=== PATIENT | male | born 1980 | race Caucasian/White ===

== ENCOUNTER → 2019-11-06 | Outpatient (CLI) | payer BC ==
--- NOTE | 2019-11-06 09:56 | RADIOLOGY REPORT (SQ) ---
EXAM DESCRIPTION: U/S ABDOMEN COMPLETE W/O DOP IMAGES COMPLETED DATE/TIME: 11/06/2019 9:34 am REASON FOR STUDY: R10.84 GENERALIZED ABDOMINAL PAIN R10.84 GENERALIZED ABDOMINAL PAIN N50.811 RIGH T TESTICULAR PAIN COMPARISON: None. TECHNIQUE: Dynamic and static grayscale images acquired of the abdomen and recorded on PACS. Additio nal selected color Doppler and spectral images recorded. Note: Study does not meet criteria for complete doppler/duplex scan LIMITATIONS: None. FINDINGS: PANCREAS: The visualized portions of the pancreas appear normal. LIVER: Normal contour and echotexture of the liver. LIVER VASCULATURE: Normal hepatopetal directional flow in the portal veins. The hepatic veins are pa tent. GALLBLADDER: The gallbladder wall measures 1.6 mm in thickness. There is no cholelithiasis, sludge o r pericholecystic fluid. ULTRASOUND-DETECTED AMAYA'S SIGN: Negative. INTRAHEPATIC DUCTS AND COMMON DUCT: The common bile duct measures 3.4 mm in diameter. There is no di latation of the intrahepatic ducts. INFERIOR VENA CAVA: Patent. AORTA: No aneurysm. RIGHT KIDNEY: The right kidney measures 10.5 cm in length. There is no hydronephrosis. LEFT KIDNEY: The left kidney measures 9.2 cm in length. There is no hydronephrosis. SPLEEN: The spleen measures 10 cm in length. PERITONEAL AND PLEURAL SPACES: No ascites or effusions. OTHER: No other finding. IMPRESSION: NORMAL ABDOMINAL ULTRASOUND. TECHNICAL DOCUMENTATION: JOB ID: [id number] 2010 [employer]- All Rights Reserved Reading location - IP/workstation name: [email or web address]
--- NOTE | 2019-11-06 10:44 | RADIOLOGY REPORT (SQ) ---
EXAM DESCRIPTION: U/S SCROTUM W/DOPPLER IMAGES COMPLETED DATE/TIME: 11/06/2019 10:31 am REASON FOR STUDY: N50.811 RIGHT TESTICULAR PAIN R10.84 GENERALIZED ABDOMINAL PAIN N50.811 RIGHT TE STICULAR PAIN COMPARISON: None. TECHNIQUE: Static and realtime arteaga scale imaging of the scrotum and testes. Selected color Doppler and spectral images recorded to document blood flow. LIMITATIONS: None. FINDINGS: RIGHT: TESTICLE: The testicle measures 3.2 x 2.6 x 1.8 cm. The echotexture of the testicular parenchyma is homogeneous and on Doppler there is intact arterial inflow and venous outflow within it. There is no testicular mass. EPIDIDYMIS: The epididymis measures 8 x 5 x 4.6 mm and on Doppler there is no evidence of hyperemia w ithin it. HYDROCELE OR VARICOCELE: Varicocele. HERNIA OR EXTRA-TESTICULAR MASS: No. OTHER: No other finding. LEFT: TESTICLE: The testicle measures 3.7 x 2.5 x 1.9 cm. The echotexture of the testicular parenchyma is homogeneous and on Doppler there is intact arterial inflow and venous outflow within it. There is no testicular mass. EPIDIDYMIS: The epididymis measures 9 x 1 x 6.3 mm and on Doppler there is no evidence of hyperemia w ithin it. HYDROCELE OR VARICOCELE: Varicocele and small hydrocele. HERNIA OR EXTRA-TESTICULAR MASS: No. OTHER: No other finding. IMPRESSION: 1. No testicular torsion or testicular mass. 2. No epididymitis. 3. Bilateral varicoceles. 4. Small left-sided hydrocele. TECHNICAL DOCUMENTATION: JOB ID: [id number] [employer]- All Rights Reserved Reading location - IP/workstation name: [email or web address]
== END ==
LOC: RAD 07:41
PROVIDERS: ATTEND Family Medicine
DX: R10.84 Generalized abdominal pain (principal); I86.1 Scrotal varices; N43.3 Hydrocele, unspecified
CPT/HCPCS: 76700; 76870; 93976